=== PATIENT | female | born 1990 | race African-American/Black ===

== ENCOUNTER 2024-02-12 00:25 | Emergency (ER) | payer MEDICAID, OTHER ==
[~2024-02-12] VITALS: Ht 170.2 cm; Wt 107.0 kg
[2024-02-12 01:11] VITALS: TEMP 97.9; O2SAT 97
[2024-02-12 01:32] LABS: BASOPHILS % 1.2 % (0.0-2.0); EOSINOPHILS % 0.5 % (0.0-5.0); LYMPHOCYTES % 17.6 % (20.0-50.0); MEAN CORPUSCULAR HEMOGLOBIN 29.8 pg (28.0-32.0); MEAN CORPUSCULAR HGB CONC 33.2 g/dL (31.0-37.0); MEAN CORPUSCULAR VOLUME 89.6 fL (81.0-99.0); MEAN PLATELET VOLUME 8.1 fl (7.4-10.4); MONOCYTES % 6.7 % (2.0-8.0); PLATELET 403 x1000/uL (130-400); RED BLOOD CELL COUNT 4.35 mill/uL (4.2-5.4); RED CELL DISTRIBUTION WIDTH 14.7 % (11.6-14.6); WHITE BLOOD COUNT 12.2 x1000/uL (4.5-11.0)
[2024-02-12 01:52] LABS: ALANINE AMINOTRANSFERASE 38 IU/L (10-49); ALBUMIN 4.9 g/dL (3.2-4.8); ASPARTATE AMINOTRANSFERASE 29 IU/L (<34); BILIRUBIN TOTAL 0.5 mg/dL (0.1-1.0); CALCIUM 8.8 mg/dL (8.7-10.4); CARBON DIOXIDE 23 mEq/L (21-32); CHLORIDE 105 mEq/L (98-107); CREATININE 0.8 mg/dL (0.6-1.0); GLUCOSE 104 mg/dL (70-105); POTASSIUM 3.3 mEq/L (3.5-5.1); PROTEIN TOTAL 8.6 g/dL (6.0-8.3); SODIUM 139 mEq/L (136-145); UREA NITROGEN BLOOD 6 mg/dL (9-23)
[2024-02-12 02:07] LABS: CLARITY URINE TURBID (CLEAR); COLOR URINE DARK YELLOW (YELLOW); GLUCOSE URINE NEGATIVE (NEGATIVE); KETONES URINE TRACE (NEGATIVE); LEUKOCYTE ESTERASE URINE 2+ (NEGATIVE); NITRITE URINE NEGATIVE (NEGATIVE); OCCULT BLOOD URINE 3+ (NEGATIVE); PH URINE 5.5 (4.5-8.0); PROTEIN URINE 2+ (NEGATIVE); SPECIFIC GRAVITY URINE 1.034 (1.005-1.030); UROBILINOGEN URINE 0.2 E.U./dL (0.2-1.0)
[2024-02-12 03:59] LABS: WBC URINE TNTC /hpf (0-2)
[2024-02-12 04:00] LABS: BACTERIA URINE 1+; RBC URINE 15-25 /hpf (0-2); SQUAMOUS EPITHELIAL CELL URINE 1+ /lpf (RARE/1+)
[2024-02-12] MEDS ORDERED: ONDA4TAB11 PO (06:04)
[2024-02-12] MEDS ORDERED: PHEN-815 MT (06:04)
[2024-02-12] MEDS ORDERED: CEPH500C2 MT (06:04)
[2024-02-12] MEDS ORDERED: IBUP-2029 MT (06:04)
[2024-02-12 06:15] VITALS: BP 129/66; PULSE 89; RESP 20
[2024-02-12] MEDS: CEPHALEXIN 250MG CAPSULE PO ONE (06:15)
[2024-02-12] MEDS: PHENAZOPYRIDINE HCL 100MG TABLET PO ONE (06:15)
[2024-02-12] MEDS: IBUPROFEN 600MG TABLET PO ONE (06:15)
[2024-02-12] MEDS: ONDANSETRON 4MG ODT PO ONE (06:15)
== END 2024-02-12 06:34 | disposition home or self-care (01) ==
LOC: ER 00:25
DX: N39.0 Urinary tract infection, site not specified (principal)
CPT/HCPCS: 80053; 81003; 81025; 85025; 87086; 36415; 99284; Q0162; Z7610